=== PATIENT | female | born 1995 | race American Indian/Alaskan Native ===

== ENCOUNTER 2021-01-06 10:41 | Emergency (ER) | payer MEDICAID ==
--- NOTE | 2021-01-06 11:19 | Emergency Department Report ---
ED Fever HPI - General Chief Complaint: Fever Stated Complaint: FEVER/BODY CHILLS Time Seen by Provider: 01/06/21 10:50 - History of Present Illness Initial Comments: Patient is a 25-year-old female presents emergency room with complaints of a fever that began last night. She has associated chills, generalized body aches, cough, nausea. She denies any ear pain, sore throat, vomiting, diarrhea, shortness of breath, chest pain. She states that she has had a positive contact with someone with COVID-19. She denies any recent travel. Patient denies any past medical history. No allergies to medications. She states that she is currently on her menstrual cycle. pt is unvaccinated against COVID 19. ED Review of Systems ROS: Stated complaint: FEVER/BODY CHILLS Other details as noted in HPI Comment: All other systems reviewed and negative ED Past Medical Hx - Past Medical History Previous Medical History?: Yes - Surgical History Past Surgical History?: No - Social History Smoking Status: Current Every Day Smoker - Medications Home Medications: Home Medications Medication Instructions Recorded Confirmed Last Taken Type Benzonatate [Tessalon Perles] 100 mg PO Q8HR PRN #12 capsule 01/06/21 Unknown Rx Ondansetron [Zofran Odt] 4 mg PO Q8HR PRN #8 tab.rapdis 01/06/21 Unknown Rx guaiFENesin ER [Mucinex ER] 600 mg PO Q12H #14 tablet.er 01/06/21 Unknown Rx ED Physical Exam - General Limitations: No Limitations General appearance: alert, in no apparent distress - Head Head exam: Present: atraumatic, normocephalic - Eye Eye exam: Present: normal appearance - ENT ENT exam: Present: normal orophraynx, mucous membranes moist, TM's normal bilaterally, normal external ear exam - Respiratory Respiratory exam: Present: normal lung sounds bilaterally. Absent: respiratory distress, wheezes, rales, rhonchi, stridor, chest wall tenderness, accessory muscle use, decreased breath sounds, prolonged expiratory - Cardiovascular Cardiovascular Exam: Present: regular rate, normal rhythm, normal heart sounds. Absent: systolic murmur, diastolic murmur, rubs, gallop - Neurological Exam Neurological exam: Present: alert, oriented X3 - Psychiatric Psychiatric exam: Present: normal affect, normal mood - Skin Skin exam: Present: warm, dry, intact ED Course Vital Signs 01/06/21 01/06/21 01/06/21 10:52 11:42 11:44 Temperature 102.2 F H 101.0 F H Pulse Rate 98 H 72 Respiratory 20 14 Rate Blood Pressure 101/63 Blood Pressure 94/59 [Right] O2 Sat by Pulse 97 99 99 Oximetry 01/06/21 01/06/21 12:08 12:37 Temperature 100.6 F H Pulse Rate 91 H Respiratory 12 18 Rate Blood Pressure 100/62 Blood Pressure [Right] O2 Sat by Pulse 100 Oximetry ED Medical Decision Making - Radiology Data Radiology results: report reviewed Ordering Physician: JORGE BEDOYA Date of Service: 01/06/21 Procedure(s): XR chest routine 2V Accession Number(s): [id number] cc: JORGE BEDOYA Fluoro Time In Minutes: CHEST 2 VIEWS INDICATION / CLINICAL INFORMATION: fever, cough. COMPARISON: None available. FINDINGS: SUPPORT DEVICES: None. HEART / MEDIASTINUM: No significant abnormality. LUNGS / PLEURA: No significant pulmonary or pleural abnormality. No pneumothorax. ADDITIONAL FINDINGS: No significant additional findings. IMPRESSION: 1. No acute findings. Signer Name: Guille Gregg MD Signed: 01/06/2021 11:39 AM Workstation Name: [id number] Transcribed By: GREGORIA Dictated By: Guille Gregg MD Electronically Authenticated By: Guille Gregg MD Signed Date/Time: 01/06/211138 DD/ 38 TD/TT: - Medical Decision Making Patient is a 25-year-old female presents emergency room with complaints of a fever that began last night. She has associated chills, generalized body aches, cough, nausea. She denies any ear pain, sore throat, vomiting, diarrhea, shortness of breath, chest pain. She states that she has had a positive contact with someone with COVID-19. She denies any recent travel. Patient denies any past medical history. No allergies to medications. She states that she is currently on her menstrual cycle. pt is unvaccinated against COVID 19. Initial vitals with fever which improved upon repeat. Chest x-ray:1. No acute findings. Patient is maintaining her oxygen saturation and has no shortness of breath or chest pain. Symptoms appear likely consistent with URI. Patient is presenting with the symptoms during COVID-19 pandemic and she has had close contact with someone with COVID-19 and she is unvaccinated, discussed the possibility of COVID-19 with patient, discussed return precautions, discussed outpatient test ing, discussed self quarantine. Advised patient Please take medication as prescribed. Please increase your fluid intake over the next several days. May take Tylenol as needed for fever or body aches. Follow-up with a primary care doctor for reexamination. Return to emergency room immediately for any new or worsening symptoms including but not limited to difficulty breathing, shortness of breath, severe chest pain, unable to tolerate by mouth intake, etc. Please self quarantine for 10 days from the onset of your symptoms. Recommend for you to get a pulse oximetry meter [id number] and to return to emergency room if oxygen drops below 93%. Recommend for you to take vitamin C, vitamin D, zinc [id number]. Critical care attestation.: If time is entered above; I have spent that time in minutes in the direct care of this critically ill patient, excluding procedure time. ED Disposition Clinical Impression: Contact with and (suspected) exposure to covid-19 Upper respiratory infection Qualifiers: URI type: unspecified URI Qualified Code(s): J06.9 - Acute upper respiratory infection, unspecified Disposition: 01 HOME / SELF CARE / HOMELESS Is pt being admited?: No Does the pt Need Aspirin: No Condition: Stable Instructions: COVID-19, Viral Respiratory Infection Additional Instructions: Please take medication as prescribed. Please increase your fluid intake over the next several days. May take Tylenol as needed for fever or body aches. Follow-up with a primary care doctor for reexamination. Return to emergency room immediately for any new or worsening symptoms including but not limited to difficulty breathing, shortness of breath, severe chest pain, unable to tolerate by mouth intake, etc. Please self quarantine for 10 days from the onset of your symptoms. Recommend for you to get a pulse oximetry meter [id number] and to return to emergency room if oxygen drops below 93%. Recommend for you to take vitamin C, vitamin D, zinc [id number]. Prescriptions: guaiFENesin ER [Mucinex ER] 600 mg PO Q12H #14 tablet.er Benzonatate [Tessalon Perles] 100 mg PO Q8HR PRN #12 capsule PRN Reason: cough Ondansetron [Zofran Odt] 4 mg PO Q8HR PRN #8 tab.rapdis PRN Reason: nausea/vomiting Referrals: PRIMARY CARE, [Primary Care Provider] - 3-5 Days [facility] [Provider Group] - 3-5 Days MANDIE SETH MD [Staff Physician] - 3-5 Days Time of Disposition: 12:20 Print Language: YAKUT
--- NOTE | 2021-01-06 11:44 | XRay Report ---
CHEST 2 VIEWS INDICATION / CLINICAL INFORMATION: fever, cough. COMPARISON: None available. FINDINGS: SUPPORT DEVICES: None. HEART / MEDIASTINUM: No significant abnormality. LUNGS / PLEURA: No significant pulmonary or pleural abnormality. No pneumothorax. ADDITIONAL FINDINGS: No significant additional findings. IMPRESSION: 1. No acute findings. Signer Name: Guille Gregg MD Signed: 01/06/2021 11:39 AM Workstation Name: [id number]
[2021-01-06] MEDS ORDERED: ACETAMINOPHEN 325 MG TAB PO NR (12:00)
[2021-01-06 12:42] VITALS: BP 100/62
== END 2021-01-06 12:44 | disposition home or self-care (01) ==
LOC: ED 10:41
DX: J06.9 Acute upper respiratory infection, unspecified (principal); Z20.822 Contact with and (suspected) exposure to COVID-19; F17.200 Nicotine dependence, unspecified, uncomplicated
CPT/HCPCS: 71046; 99283